=== PATIENT | male | born 2000 | race Hispanic/Latino ===

== ENCOUNTER 2024-03-14 22:10 | Emergency (ER) | payer SELFPAY ==
[~2024-03-14] VITALS: Ht 185.4 cm; Wt 87.3 kg
[2024-03-14 22:11] VITALS: BP 127/71; TEMP 99.4; O2SAT 99
[2024-03-15] MEDS ORDERED: METH-1164 PO (15:11)
[2024-03-15] MEDS ORDERED: LIDO5DIS41 TD (15:11)
[2024-03-15] MEDS ORDERED: NAPR-837 PO (15:11)
== END 2024-03-15 02:50 | disposition left against medical advice (07) ==
LOC: M ED 22:10
DX: Z53.21 Procedure and treatment not carried out due to patient leaving prior to being seen by health care provider (principal)

== ENCOUNTER 2024-03-15 12:50 | Emergency (ER) | payer OTHER, SELFPAY ==
[~2024-03-15] VITALS: Ht 185.4 cm; Wt 85.8 kg
[2024-03-15 12:50] VITALS: BP 135/63; TEMP 97.6; O2SAT 98
[2024-03-15] MEDS: KETOROLAC 60MG 2ML VIAL IM ONE (14:24)
[2024-03-15] MEDS: LIDOCAINE 5% (LIDODERM) PATCH TD ONE (14:24)
[2024-03-15] MEDS ORDERED: NAPR-837 PO (15:11)
[2024-03-15] MEDS ORDERED: LIDO5DIS41 TD (15:11)
[2024-03-15] MEDS ORDERED: METH-1164 PO (15:11)
== END 2024-03-15 15:18 | disposition home or self-care (01) ==
LOC: M ED 12:50
DX: M54.50 Low back pain, unspecified (principal); Z79.899 Other long term (current) drug therapy
CPT/HCPCS: 72110; 96372; 99282; J1885